=== PATIENT | male | born 1995 | race Hispanic/Latino ===

== ENCOUNTER 2017-01-11 20:18 | Emergency (ER) | payer OTHER ==
[~2017-01-11] VITALS: Ht 162.6 cm; Wt 82.0 kg
[~2017-01-11 20:18] MED LIST: DOXY-232 PO
[2017-01-11 20:39] VITALS: BP 106/72; PULSE 63; RESP 18; O2SAT 99
[2017-01-11 21:07] VITALS: BP 116/55; PULSE 65; RESP 15; O2SAT 99
--- NOTE | 2017-01-11 21:25 | ED.REPORT ---
HPI-Chest Pain Under 40 Date of Service January 11, 2017 ED Provider: Yong Turk MD A 22 year old male with a history of asthma, pericarditis and anxiety presents to the ED with chest pain that began earlier this morning. Patient was seen at Urgent Care earlier this afternoon who directed her to the ED for further workup. Associated symptoms include neck pain, non productive cough and chin pain. He rates his chest pain as a 5/10 and his symptoms have been persistent since onset. The discomfort in his chest is exacerbated by deep breath. He denies exacerbation with exertion. Patient was seen in the ED on 08/2016 for similar chest pain and was discharged in good condition after a negative cardiac workup. He denies any edema in the lower extremities or recent fever. Nursing Notes Stated Complaint: CHEST PAIN, CHIN PAIN, COUGH/SENT BY UC Chief Complaint: General Complaint Nursing Notes Reviewed: Yes Allergies: Coded Allergies: No Known Allergies (Unverified , 08/25/16) Scheduled Doxycycline Monohyd (Doxycycline Monohyd) 100 Mg Tablet 100 MG PO BID General Time Seen by MD: 21:14 Chief Complaint Chest pain Hx Obtained From: Patient Arrived By: Walk-in Sudden in Onset?: Yes Onset Occurred: 9 - 12 hours ago Symptom Duration: Since onset Location: : Chest left: Chest right Quality: Painful Radiation: : Does not radiate Migration/Movement: Reports: None Severity: Current: Pain level 5 out of 10 Severity: Maximum: Pain level 5 out of 10 Associated with: Reports: Cough, non-productive, Denies: Fever Pertinent Negative: Pt denies other symptoms Exacerbated by: Deep breath Recent Healthcare: No recent doctor visit, No recent hospitalization Risk Factors )( CAD Risk Stratification Risk factors reviewed )( PE Risk Stratification Risk factors reviewed PERC Rule PERC Result: All PERC criteria "No" Well's Criteria for PE Well's PE Score: 0-2 pts (low risk 3.6%) Well's Criteria for DVT Well's DVT Score: 0 pts (low risk 5%) Past Medical History Past Medical History Notes: No PCP Past Medical History Asthma Pericarditis Anxiety Past Surgical History None reported. Family History noncontributory Smoking History Unknown if Ever Smoker Social History Alcohol Use: Denies alcohol use Drug Use: Denies drug use Other Social History: Good social support, [place] resident, College student Occupation [email or web address] Ambulatory Status Independent Review of Systems Chin Pain Constitutional: Denies: Chills, Fever Respiratory: Reports: Non-productive cough Cardiovascular: Reports: Chest pain Musculoskeletal: Reports: Neck pain, Denies: Extremity swelling Complete sys rev & neg: except as marked. Physical Exam Initial Vital Signs Vital Signs (First) Date Time Temp Pulse Resp B/P Pulse Ox O2 Delivery O2 Flow Rate FiO2 01/11/17 20:39 36.3 63 18 106/72 99 Room Air Initial VS: Reviewed, Vital signs normal Head / Eyes: Atraumatic, Normocephalic, PERRL Neck: Supple, Non-tender, Full range of motion Extremities: Vascular intact, Neuro intact, No swelling, No tenderness Skin: Warm, Dry, No cyanosis Neurologic: Alert, Oriented, Nonfocal Psychiatric: Mood/affect normal, Behavior normal, Normal thought content General/Constitutional: Awake, Alert, No acute distress Respiratory / Chest: Atraumatic, Breath sounds NL, Breath sounds = bilat, No respiratory distress Cardiovascular: Heart rate NL, Regular rhythm, Heart sounds NL, No murmurs, No rubs Interpretation & Diagnostics Lab Results Interpretation Result Diagram: 01/11/17205601/11/172056 Test 01/11/17 20:57 01/12/17 01:55 White Blood Count 10.9th/mm3 (3.8-10.1) Red Blood Count 4.60mil/mm3 (4.40-5.80) Hemoglobin 13.8g/dL (13.8-17.2) Hematocrit 40.7% (41.0-50.0) Mean Corpuscular Volume 88.5fL (81-100) Mean Corpuscular Hemoglobin 30.0pg (27.0-35.0) Mean Corpuscular Hemoglobin Concent 33.9% (32.0-37.0) Red Cell Distribution Width 11.8% (12.3-15.4) Platelet Count 384bil/L (150-400) Neutrophils (%) (Auto) 52.1% (40-74) Lymphocytes (%) (Auto) 37.7% (14-46) Monocytes (%) (Auto) 6.2% (4-12) Eosinophils (%) (Auto) 3.1% (0-5) Basophils (%) (Auto) 0.6% (0-3) Erythrocyte Sedimentation Rate 4mm/hr (0-15) Hold Purple Top Tube Received (Received) D-Dimer < 0.50mg/L FEU (<0.50) Hold Blue Top Tube Received (Received) Sodium Level 137mEq/L (134-144) Potassium Level 3.9mEq/L (3.5-5.2) Chloride Level 101mEq/L (97-108) Carbon Dioxide Level 25mmol/L (18-29) Blood Urea Nitrogen 10mg/dL (6-20) Creatinine 0.74mg/dL (0.76-1.27) Estimat Glomerular Filtration Rate 138mL/min (>59) Glucose Level 101mg/dL (60-99) Calcium Level 9.6mg/dL (8.5-10.1) Magnesium Level 2.2mg/dL (1.6-2.6) Total Bilirubin 0.4mg/dL (0.0-1.2) Aspartate Amino Transf (AST/SGOT) 22U/L (0-50) Alanine Aminotransferase (ALT/SGPT) 24U/L (0-44) Alkaline Phosphatase 87U/L (25-150) C-Reactive Protein 0.4mg/dL (0.0-0.5) Total Protein 7.2g/dL (6.4-8.4) Albumin 4.4g/dL (3.4-5.0) Hold Red Top Tube Received (Received) Hold [place] Top Tube Received (Received) Hold [place] Top Tube Received (Received) Troponin T 0.010ug/L (0.0-0.011) Lab values outside NL range: no clinical significance. Lab Results Interpretation: Troponin negative 2 ECG Interpretation ECG Interpretation: Sinus Rhythm Rate 63 ST elevation; probable normal early repol pattern Time: 20:25 Interpreted by: ED physician Normal ECG Interpretation: No change from prior ECGs X-Ray Chest Interpretation Chest Xray Interpretation: IMPRESSION: No acute Interpretation / Wet Read by: Wet read ED physician Re-Eval/Medical Decision Med Decision/Clinical Course 22-year-old male who complains of intermittent chest wall pain with radiation up into his jaw. He had a previous diagnosis pericarditis based on a diffuse ST elevation pattern. The EKG is similar but does not meet the degree of ST elevation that I have seen in other pericarditis patients. Chest x-ray is normal. Troponin is negative 2. CRP and sedimentation rate are both normal, as is the white blood count. I do not suspect cardiac disease (pericarditis or coronary artery disease) at this time. Ibuprofen for chest wall discomfort. Re-Evaluation/Progress #1: Time of Eval: 01:37 Patient Status: Condition unchanged Re-Evaluation/Progress Note: Patient's pain is still present. He is informed of the plan to repeat Troponin and receive a shot of Toradol. Re-Evaluation/Progress #2: Time of Eval: 02:43 Patient Status: Condition improved Re-Evaluation/Progress Note: Patient informed of his lab results, EKG results and X-ray results. He understands and agrees with the treatment plan. Counseled Regarding: Diagnosis, Need for follow-up, When/why to return to ED Discharge & Departure Primary Impression: Chest pain with low risk for cardiac etiology Disposition: Home Discharge Condition All VS Reviewed: Yes Condition: Improved Patient Instructions: Chest Pain (ED) Additional Instructions: The pain seems to be related to the bones and joints of the chest wall rather than the heart. This does not appear to be pericarditis this time. Recommend ibuprofen 600 mg 3 or 4 times daily with food, to be purchased over-the- counter. Follow up with your regular doctor as needed for persistent symptoms. Referrals: Ankur Craig (PCP) [facility] Scribe Attestation Portions of this note were transcribed by Charlotte Moy. I, Dr. Turk personally performed the history, physical exam and medical decision-making; I reviewed and confirmed the accuracy of the information in the transcribed note. Signed by: Negrita Sheridan, 01/12/17 0245. Yong Turk MD January 11, 2017 21:25 CHARLOTTE MOY January 11, 2017 21:32
[2017-01-11 21:42] LABS: BASOPHILS % (AUTO) 0.6 % (0-3); EOSINOPHILS % (AUTO) 3.1 % (0-5); MONOCYTES % (AUTO) 6.2 % (4-12); Mean Corpuscular Volume 88.5 fL (81-100); NEUTROPHILS % (AUTO) 52.1 % (40-74); Platelet Count 384 bil/L (150-400)
[2017-01-11 21:54] LABS: TROPONIN T 0.01 ug/L (0.0-0.011)
[2017-01-11 22:05] LABS: Magnesium 2.2 mg/dL (1.6-2.6)
[2017-01-11 22:09] LABS: ERYTHROCYTE SEDIMENTATION RATE 4 mm/hr (0-15)
[2017-01-11 23:34] VITALS: BP 107/52; PULSE 70; RESP 17; O2SAT 100
[2017-01-12] MEDS ORDERED: Ketorolac 15 mg/mL Inj IVPUSH ONE (01:45)
[2017-01-12 01:59] VITALS: BP 106/55; PULSE 73; RESP 21; O2SAT 100
[2017-01-12 03:24] VITALS: BP 114/60; PULSE 79; RESP 15; O2SAT 100
--- NOTE | 2017-01-12 07:25 | DRSVH ---
PROCEDURE: X-RAY CHEST, TWO VIEWS ([id number]) INDICATIONS: chest pain TECHNIQUE: 2 views of the chest were acquired. COMPARISON: None. FINDINGS: Surgical changes and devices: None. Lungs and pleura: No pleural effusions or pneumothorax. Lungs are clear. Mediastinum: Mediastinal contours are normal. Heart size is normal. Bones and chest wall: No suspicious bony abnormalities. Soft tissues appear unremarkable. IMPRESSION: No acute cardiopulmonary findings. Dictated by: Hilary Escobedo M.D. on 01/12/2017 at 7:23 Approved by: Hilary Escobedo M.D. on 01/12/2017 at 7:23
== END 2017-01-12 03:28 | disposition home or self-care (01) ==
LOC: SED 20:18
DX: R07.89 Other chest pain (principal); J45.909 Unspecified asthma, uncomplicated
CPT/HCPCS: 36415; 71020; 80053; 83735; 84484; 85025; 85378; 85651; 86140; 93005; 96374; 99285; J1885